=== PATIENT | female | born 1960 | race Two or more races ===

== ENCOUNTER 2020-01-19 12:13 | Inpatient (IN) | payer OTHER ==
[~2020-01-19] VITALS: Ht 154.9 cm; Wt 100.2 kg
[2020-02-13] MEDS ORDERED: AMBIEN10 MG PO (13:29)
[2020-02-13] MEDS ORDERED: LISINOPRIL PO (13:29)
[2020-02-13] MEDS ORDERED: TRANXE PO (13:30)
[2020-02-13] MEDS ORDERED: TRANXENE T-TAB7.5 MG PO (13:30)
[2020-02-13] MEDS ORDERED: VOLTAREN100 GM PO (13:31)
[2020-02-13] MEDS ORDERED: LEVAQUIN500 MG PO (13:31)
[2020-02-13] MEDS ORDERED: GRALISE600 MG PO (13:31)
[2020-02-13] MEDS ORDERED: CANABIS PO (13:32)
[2020-02-17] MEDS ORDERED: ZESTRIL20 MG PO (11:20)
== END 2020-02-20 15:56 | DRG 470 ==
LOC: SURG 02-17 06:10 → O/R 02-17 06:10 → RECOVERY 02-17 09:00 → SURG 02-17 15:45
PROVIDERS: ADMIT Orthopaedic Surgery; ATTEND Orthopaedic Surgery
PROC: 0SRB0JZ Replacement of Left Hip Joint with Synthetic Substitute, Open Approach (ICD-10-PCS; principal; 2020-02-17 10:00)
DX: M16.12 Unilateral primary osteoarthritis, left hip (principal); D62 Acute posthemorrhagic anemia; I10 Essential (primary) hypertension; Z20.828 Contact with and (suspected) exposure to other viral communicable diseases; Z96.652 Presence of left artificial knee joint

== ENCOUNTER 2021-03-17 10:00 | Inpatient (IN) | payer OTHER ==
[~2021-03-17] VITALS: Ht 157.5 cm; Wt 99.3 kg
[~2021-03-17 10:00] MED LIST: AMBIEN10 MG PO; CANABIS PO; GRALISE600 MG PO; LEVAQUIN500 MG PO; LISINOPRIL PO; TRANXE PO; TRANXENE T-TAB7.5 MG PO; VOLTAREN100 GM PO; ZESTRIL20 MG PO
== END 2021-03-25 14:05 | DRG 470 ==
LOC: O/R 03-22 06:52 → SURG 03-22 10:00 → SURH 03-22 21:21
PROVIDERS: ADMIT Orthopaedic Surgery; ATTEND Orthopaedic Surgery
PROC: 0SR90JZ Replacement of Right Hip Joint with Synthetic Substitute, Open Approach (ICD-10-PCS; principal; 2021-03-22 10:15)
PROC: 30233N1 Transfusion of Nonautologous Red Blood Cells into Peripheral Vein, Percutaneous Approach (ICD-10-PCS; 2021-03-23)
DX: M16.11 Unilateral primary osteoarthritis, right hip (principal); D62 Acute posthemorrhagic anemia; I10 Essential (primary) hypertension; M85.661 Other cyst of bone, right lower leg

== ENCOUNTER 2021-04-02 15:16 | Emergency (ER) | payer OTHER ==
[~2021-04-02] VITALS: Ht 162.6 cm; Wt 104.3 kg
== END 2021-04-02 22:30 | disposition designated cancer center or children's hospital (05) ==
LOC: ER 15:16
DX: R07.89 Other chest pain (principal); Z98.890 Other specified postprocedural states

== ENCOUNTER 2024-02-27 14:32 | Outpatient (CLI) | payer OTHER ==
[2024-02-28] MEDS ORDERED: NEURONTIN300 MG (19:42)
== END 2024-02-27 14:37 | disposition home or self-care (01) ==
LOC: RAD 14:32
DX: M16.0 Bilateral primary osteoarthritis of hip (principal)

== ENCOUNTER → 2024-02-28 | Emergency (ER) | payer OTHER ==
[~2024-02-28] VITALS: Ht 157.5 cm; Wt 96.2 kg
[~2024-02-28] MED LIST changes: +NEURONTIN300 MG
[2024-02-28 21:32] LABS: HEMATOCRIT 28.5 % (36.0-45.00); MEAN CELL VOLUME 86.6 fL (80.00-100.00); MEAN CORPUSCULAR HGB CONC 33.4 g/dl (32.0-36.0); PLATELET COUNT 213 K/uL (150-450); RED BLOOD COUNT 3.29 M/uL (4.00-6.00); RED CELL DISTRIBUTION WIDTH 15.9 % (11.5-14.5)
[2024-02-28 21:35] LABS: HEMOGLOBIN 9.5 g/dL (12.0-15.00); MEAN CORPUSCULAR HEMOGLOBIN 28.8 pg (27.00-32.0)
[2024-02-28 21:36] LABS: ERYTHROCYTE SEDIMENTATION RATE 75 mm/hr
[2024-02-28 21:50] LABS: CALCIUM 9.7 mg/dL (8.5-10.1); CREATININE SERUM 0.99 mg/dL (0.55-1.02); GFR 56.47; POTASSIUM 4.14 mEq/L (3.5-5.1)
[2024-02-28 21:52] LABS: C-REACTIVE PROTEIN 0.74 MG/DL (0.00-0.29); INR 1.08; PARTIAL THROMBOPLASTIN TIME 31.7 SECONDS (22.0-34.0); PROTHROMBIN TIME 11.3 SECONDS (9.0-11.5)
== END | disposition home or self-care (01) ==
LOC: ER 19:12
PROVIDERS: Emergency Medicine
DX: M25.559 Pain in unspecified hip (principal)

== ENCOUNTER 2024-03-10 10:46 | Inpatient (IN) | payer OTHER ==
[~2024-03-10] VITALS: Ht 157.5 cm; Wt 97.5 kg
--- NOTE | 2024-03-10 12:34 | NUR ---
SE RECIBE PACIENTE ALERTA Y ORIENTADA X3 ACUDE A ER POR REFERDIDO POR LA (CIRUIZAA ORTEPJOSE) PARA ADMITIR PARA REPARAR PROTESIS DE CADERA.
[2024-03-10] MEDS ORDERED: BRIMONIDINE TART5 ML (12:37)
[2024-03-10 13:22] LABS: HEMATOCRIT 32.7 % (36.0-45.00); HEMOGLOBIN 10.8 g/dL (12.0-15.00); MEAN CELL VOLUME 88.1 fL (80.00-100.00); MEAN CORPUSCULAR HEMOGLOBIN 29.1 pg (27.00-32.0); PLATELET COUNT 208 K/uL (150-450); RED BLOOD COUNT 3.71 M/uL (4.00-6.00); RED CELL DISTRIBUTION WIDTH 15.5 % (11.5-14.5)
[2024-03-10 13:44] LABS: INR 1.05; PARTIAL THROMBOPLASTIN TIME 31.3 SECONDS (22.0-34.0); PROTHROMBIN TIME 11.4 SECONDS (9.0-11.5)
[2024-03-10 14:19] LABS: PH,URINE 5.5 (5.0-8.0); URINE APPEARANCE Cloudy; URINE BILIRRUBIN Negative (NEGATIVE); URINE BLOOD Negative; URINE COLOR Yellow; URINE GLUCOSE Negative (NEGATIVE); URINE KETONE Negative (NEGATIVE); URINE LEUKOCYTE Moderate; URINE NITRATE Positive; URINE PROTEIN Trace (NEGATIVE); URINE UROBILINOGEN 0.2 E.U./dl
[2024-03-10 14:23] LABS: URINE EPITHELIAL CELLS 31.2 uL (0.0-38.8); URINE RBC 5.8 uL (0.0-20.8); URINE WBC 606.9 uL (0.0-23.2)
[2024-03-10 14:28] LABS: URINE BACTERIA > 9821.5 uL (0.0-1933); URINE CAST 1.06 uL (0.0-1.40)
[2024-03-10] MEDS ORDERED: CEFTRIAXONE SODIUM 1,000 MG VIAL IV SCH (19:57)
[2024-03-10] MEDS ORDERED: ENALAPRILAT DIHYDRATE 1.25 MG/ML VIAL IV PRN (20:00)
[2024-03-11] MEDS ORDERED: CEFAZOLIN SODIUM 1,000 MG VIAL IV SCH ×2 (08:30→18:00)
[2024-03-11] MEDS ORDERED: TRANEXAMIC ACID 100MG/1ML (1000MG) AMPUL IV SCH ×2 (08:30)
[2024-03-11] MEDS ORDERED: ISOPROPYL ALCOHOL 30 ML OUNCE TOP ONE (08:35)
[2024-03-11] MEDS ORDERED: FAMOTIDINE/PF 20 MG in 0.9 % SODIUM CHLORIDE 100 ML IV SCH (09:00)
[2024-03-11] MEDS ORDERED: LISINOPRIL 20 MG TABLET PO SCH (09:00)
[2024-03-11] MEDS ORDERED: SUGAMMADEX SODIUM 200 MG/2 ML VIAL IV ONE ×2 (13:25→14:30)
[2024-03-11] MEDS ORDERED: OxyCODONE HCL/APAP UD (PERCOCET) PO PRN (13:30)
[2024-03-11] MEDS ORDERED: ONDANSETRON HCL 2 MG/ML VIAL IV PRN (13:30)
[2024-03-11] MEDS ORDERED: MORPHINE SULFATE 4 MG/ML VIAL IV ONE ×3 (14:20→14:50)
[2024-03-11] MEDS ORDERED: MORPHINE SULFATE 4 MG/ML CARTRIDGE IV SCH (18:00)
[2024-03-11] MEDS ORDERED: GABAPENTIN 100 MG CAPSULE PO SCH (21:00)
[2024-03-11] MEDS ORDERED: ORPHENADRINE CITRATE 100 MG TABLET PO SCH (21:00)
[2024-03-12 08:12] LABS: HEMATOCRIT 26.1 % (36.0-45.00); MEAN CORPUSCULAR HGB CONC 33.2 g/dl (32.0-36.0); PLATELET COUNT 197 K/uL (150-450); RED CELL DISTRIBUTION WIDTH 14.8 % (11.5-14.5)
[2024-03-12 08:28] LABS: HEMOGLOBIN 8.7 g/dL (12.0-15.00)
[2024-03-12] MEDS ORDERED: ENOXAPARIN SODIUM 30 MG/0.3 ML SYRINGE SUBCUTANEO SCH (09:00)
[2024-03-12] MEDS ORDERED: SOD FERRIC GLUC COMPLX/SUCROSE 62.5 MG/5 ML AMPUL IV SCH (11:43)
[2024-03-12] MEDS ORDERED: Cyanocobalamin/Mecobalamin 1 TAB.SL SL SCH (11:43)
[2024-03-12] MEDS ORDERED: VITAMIN B COMPLEX 1 EACH PO SCH (11:43)
[2024-03-12] MEDS ORDERED: FUROsemide 20 MG/2 ML VIAL IV SCH (11:45)
[2024-03-13] MEDS ORDERED: NORFLEX100MG PO (13:06)
[2024-03-13] MEDS ORDERED: GABAPENTIN100 MG PO (13:06)
[2024-03-13] MEDS ORDERED: OXYC1TAB9 PO (13:07)
[2024-03-13] MEDS ORDERED: XARELTO10 MG PO (13:07)
[2024-03-13 13:45] LABS: HEMATOCRIT 33.2 % (36.0-45.00); HEMOGLOBIN 11.1 g/dL (12.0-15.00); MEAN CELL VOLUME 89.1 fL (80.00-100.00); MEAN CORPUSCULAR HEMOGLOBIN 29.7 pg (27.00-32.0); MEAN CORPUSCULAR HGB CONC 33.3 g/dl (32.0-36.0); PLATELET COUNT 161 K/uL (150-450); RED BLOOD COUNT 3.73 M/uL (4.00-6.00); RED CELL DISTRIBUTION WIDTH 14.7 % (11.5-14.5)
== END 2024-03-13 17:52 | DRG 467 ==
LOC: ER 10:47 → SURG 13:09 → SEC-K 13:09 → SURG 15:42
PROVIDERS: ADMIT Orthopaedic Surgery; ATTEND Orthopaedic Surgery
PROC: 0SPA0JZ Removal of Synthetic Substitute from Right Hip Joint, Acetabular Surface, Open Approach (ICD-10-PCS; 2024-03-11)
PROC: 0SRA0JZ Replacement of Right Hip Joint, Acetabular Surface with Synthetic Substitute, Open Approach (ICD-10-PCS; principal; 2024-03-11 08:30)
PROC: 30233N1 Transfusion of Nonautologous Red Blood Cells into Peripheral Vein, Percutaneous Approach (ICD-10-PCS; 2024-03-12)
DX: T84.020A Dislocation of internal right hip prosthesis, initial encounter (principal); D62 Acute posthemorrhagic anemia; M79.7 Fibromyalgia; I10 Essential (primary) hypertension

== ENCOUNTER 2024-03-31 11:38 | Inpatient (IN) | payer OTHER ==
[~2024-03-31] VITALS: Ht 157.5 cm; Wt 96.2 kg
[~2024-03-31 11:38] MED LIST changes: +BRIMONIDINE TART5 ML; +GABAPENTIN100 MG PO; +NORFLEX100MG PO; +OXYC1TAB9 PO; +XARELTO10 MG PO
[2024-03-31] MEDS ORDERED: 0.9 % SODIUM CHLORIDE 1,000 ML IV SCH ×2 (12:15→16:45)
[2024-03-31] MEDS ORDERED: VANCOMYCIN HCL 500 MG VIAL IV ONE (12:15)
[2024-03-31] MEDS ORDERED: VANCOMYCIN HCL 1,000 MG VIAL ONE (12:38)
[2024-03-31 13:03] LABS: HEMATOCRIT 33.6 % (36.0-45.00); MEAN CELL VOLUME 87.5 fL (80.00-100.00); MEAN CORPUSCULAR HEMOGLOBIN 28.6 pg (27.00-32.0); MEAN CORPUSCULAR HGB CONC 32.7 g/dl (32.0-36.0); PLATELET COUNT 337 K/uL (150-450); RED BLOOD COUNT 3.84 M/uL (4.00-6.00); RED CELL DISTRIBUTION WIDTH 14.6 % (11.5-14.5)
[2024-03-31 13:10] LABS: ERYTHROCYTE SEDIMENTATION RATE 75 mm/hr
[2024-03-31 13:16] LABS: INR 1.05; PARTIAL THROMBOPLASTIN TIME 31.7 SECONDS (22.0-34.0); PROTHROMBIN TIME 11.4 SECONDS (9.0-11.5)
[2024-03-31 14:08] LABS: ALBUMIN 3.4 gm/dL (3.4-5.0); BILIRUBIN TOTAL 0.17 mg/dL (0.3-1.2); CALCIUM 9.6 mg/dL (8.5-10.1); CREATININE SERUM 1.21 mg/dL (0.55-1.02); GFR 44.66; POTASSIUM 4.64 mEq/L (3.5-5.1); TOTAL PROTEIN 8.4 gm/dL (6.4-8.2)
[2024-03-31 14:10] LABS: C-REACTIVE PROTEIN 2.24 MG/DL (0.00-0.29)
[2024-03-31 14:39] LABS: PH,URINE 6.5 (5.0-8.0); URINE APPEARANCE Cloudy; URINE BILIRRUBIN Negative (NEGATIVE); URINE BLOOD Negative; URINE COLOR Yellow; URINE GLUCOSE Negative (NEGATIVE); URINE KETONE Negative (NEGATIVE); URINE LEUKOCYTE Trace; URINE NITRATE Negative; URINE PROTEIN Negative (NEGATIVE); URINE UROBILINOGEN 0.2 E.U./dl
[2024-03-31 14:41] LABS: URINE BACTERIA 3933.5 uL (0.0-1933); URINE CAST 1.52 uL (0.0-1.40); URINE RBC 29.1 uL (0.0-20.8); URINE WBC 26.1 uL (0.0-23.2)
[2024-03-31 15:01] LABS: URINE EPITHELIAL CELLS > 201.7 uL (0.0-38.8)
[2024-03-31] MEDS ORDERED: VANCOMYCIN HCL 1,000 MG in 0.9 % SODIUM CHLORIDE 250 ML IV SCH (16:42)
[2024-03-31] MEDS ORDERED: CEFTRIAXONE SODIUM 2,000 MG in DEXTROSE 5 % IN WATER 100 ML IV SCH (16:44)
[2024-03-31] MEDS ORDERED: OxyCODONE HCL/APAP UD (PERCOCET) PO PRN (16:45)
[2024-03-31] MEDS ORDERED: CEFTRIAXONE SODIUM 2,000 MG VIAL ONE (16:59)
[2024-03-31] MEDS ORDERED: FAMOTIDINE/PF 20 MG/2 ML VIAL ONE (16:59)
[2024-03-31] MEDS ORDERED: LACTOBACILLUS ACIDOPHILUS 1 CAP CAP PO ONE (16:59)
[2024-03-31] MEDS ORDERED: LACTOBACILLUS ACIDOPHILUS 1 CAP CAP PO SCH (17:00)
[2024-03-31] MEDS ORDERED: FAMOtidine 20 MG TABLET PO SCH (17:00)
[2024-03-31 17:03] VITALS: BP 99/65; O2SAT 97
[2024-03-31 20:05] VITALS: BP 160/67; O2SAT 96
[2024-03-31] MEDS ORDERED: VANCOMYCIN HCL 1,000 MG VIAL IV SCH (21:00)
[2024-03-31] MEDS ORDERED: LORazepam 1 MG TABLET PO SCH (21:00)
[2024-04-01 00:38] VITALS: BP 100/55; O2SAT 100
[2024-04-01 07:06] LABS: HEMOGLOBIN 10.1 g/dL (12.0-15.00); MEAN CELL VOLUME 86.5 fL (80.00-100.00); MEAN CORPUSCULAR HEMOGLOBIN 29.2 pg (27.00-32.0); MEAN CORPUSCULAR HGB CONC 33.8 g/dl (32.0-36.0); PLATELET COUNT 257 K/uL (150-450); RED BLOOD COUNT 3.47 M/uL (4.00-6.00); RED CELL DISTRIBUTION WIDTH 14.8 % (11.5-14.5)
[2024-04-01 07:16] LABS: ALBUMIN 2.9 gm/dL (3.4-5.0); BILIRUBIN TOTAL 0.17 mg/dL (0.3-1.2); CALCIUM 9.1 mg/dL (8.5-10.1); GFR 55.64; GLOBULINA 3.7 G/DL (2.4-3.5); POTASSIUM 5.13 mEq/L (3.5-5.1); TOTAL PROTEIN 6.6 gm/dL (6.4-8.2)
[2024-04-01 07:17] LABS: C-REACTIVE PROTEIN 1.87 MG/DL (0.00-0.29)
[2024-04-01 08:16] VITALS: BP 139/70; O2SAT 100
[2024-04-01] MEDS ORDERED: LISINOPRIL 20 MG TABLET PO SCH (09:00)
[2024-04-01] MEDS ORDERED: Cyanocobalamin/Mecobalamin 1 TAB.SL SL SCH (09:00)
[2024-04-01] MEDS ORDERED: SOD FERRIC GLUC COMPLX/SUCROSE 62.5 MG in 0.9 % SODIUM CHLORIDE 50 ML IV SCH (09:00)
[2024-04-01] MEDS ORDERED: ENOXAPARIN SODIUM 30 MG/0.3 ML SYRINGE SUBCUTANEO SCH (09:00)
[2024-04-01 14:45] LABS: URINE APPEARANCE Clear; URINE BILIRRUBIN Negative (NEGATIVE); URINE BLOOD Negative; URINE COLOR Yellow; URINE GLUCOSE Negative (NEGATIVE); URINE KETONE Negative (NEGATIVE); URINE LEUKOCYTE Negative; URINE NITRATE Negative; URINE PROTEIN Negative (NEGATIVE); URINE UROBILINOGEN 0.2 E.U./dl
[2024-04-01 14:49] LABS: URINE BACTERIA 142.3 uL (0.0-1933); URINE EPITHELIAL CELLS 52.7 uL (0.0-38.8); URINE RBC 3.9 uL (0.0-20.8)
[2024-04-01 14:53] LABS: URINE WBC 1.5 uL (0.0-23.2)
[2024-04-01 16:00] VITALS: BP 114/69; O2SAT 92
[2024-04-01] MEDS ORDERED: GUAIFENESIN/DEXTROMETHORPHAN 10ML BLIST.PACK PO SCH (17:00)
[2024-04-01 20:00] VITALS: BP 114/71; O2SAT 97
[2024-04-01] MEDS ORDERED: LORATADINE 10 MG TABLET PO SCH (21:00)
[2024-04-02 00:45] VITALS: BP 118/56; O2SAT 97
[2024-04-02 08:06] VITALS: BP 140/64; O2SAT 96
[2024-04-02] MEDS ORDERED: VITAMIN B COMPLEX 1 EACH PO SCH (12:22)
[2024-04-02] MEDS ORDERED: CEFAZOLIN SODIUM 2,000 MG in 0.9 % SODIUM CHLORIDE 100 ML IV SCH (13:00)
[2024-04-02 15:25] VITALS: BP 124/59; O2SAT 97
[2024-04-02] MEDS ORDERED: AMINO ACIDS/PROTEIN HYDROLYS 30 ML BLIST.PACK PO SCH (16:00)
[2024-04-03] VITALS: BP 120/70; O2SAT 93
[2024-04-03 08:00] VITALS: BP 133/69; O2SAT 97
[2024-04-03] MEDS ORDERED: ACETAMINOPHEN 500 MG GEL..CAP PO PRN (11:45)
[2024-04-03 15:45] VITALS: BP 127/75; O2SAT 97
[2024-04-03] MEDS ORDERED: ACETAMINOPHEN 500 MG GEL..CAP PO SCH (17:00)
[2024-04-03] MEDS ORDERED: RIFAMPIN 300 MG CAPSULE PO SCH (17:00)
[2024-04-04] VITALS: BP 148/87; O2SAT 100
[2024-04-04 08:00] VITALS: BP 157/71; O2SAT 97
[2024-04-04 08:21] LABS: HEMATOCRIT 32.4 % (36.0-45.00); HEMOGLOBIN 10.8 g/dL (12.0-15.00); MEAN CELL VOLUME 87.3 fL (80.00-100.00); MEAN CORPUSCULAR HEMOGLOBIN 29.1 pg (27.00-32.0); MEAN CORPUSCULAR HGB CONC 33.3 g/dl (32.0-36.0); PLATELET COUNT 249 K/uL (150-450); RED BLOOD COUNT 3.71 M/uL (4.00-6.00); RED CELL DISTRIBUTION WIDTH 14.4 % (11.5-14.5)
[2024-04-04 08:59] LABS: ERYTHROCYTE SEDIMENTATION RATE 81 mm/hr
[2024-04-04 09:26] LABS: BILIRUBIN TOTAL 0.28 mg/dL (0.3-1.2); CALCIUM 9.1 mg/dL (8.5-10.1); CREATININE SERUM 0.9 mg/dL (0.55-1.02); GFR 62.84; GLOBULINA 3.9 G/DL (2.4-3.5); MAGNESIUM 2.1 mg/dL (1.8-2.4); PHOSPHOROUS 3.4 mg/dL (2.5-4.9); POTASSIUM 4.56 mEq/L (3.5-5.1); TOTAL PROTEIN 6.9 gm/dL (6.4-8.2)
[2024-04-04 09:31] LABS: C-REACTIVE PROTEIN 0.86 MG/DL (0.00-0.29)
[2024-04-04 11:33] LABS: PH,URINE 6.5 (5.0-8.0); URINE APPEARANCE Clear; URINE BILIRRUBIN Negative (NEGATIVE); URINE BLOOD Negative; URINE COLOR Yellow; URINE GLUCOSE Negative (NEGATIVE); URINE KETONE Negative (NEGATIVE); URINE LEUKOCYTE Negative; URINE NITRATE Negative; URINE PROTEIN Negative (NEGATIVE); URINE UROBILINOGEN 0.2 E.U./dl
[2024-04-04 11:48] LABS: URINE EPITHELIAL CELLS 114.6 uL (0.0-38.8); URINE WBC 11.9 uL (0.0-23.2)
[2024-04-04 12:12] LABS: URINE CAST 0.61 uL (0.0-1.40)
[2024-04-04 15:48] VITALS: BP 137/84; O2SAT 97
[2024-04-05 00:41] VITALS: BP 143/83; O2SAT 97
[2024-04-05 08:00] VITALS: BP 170/76; O2SAT 97
[2024-04-05] MEDS ORDERED: ENOXAPARIN SODIUM 40 MG/0.4 ML SYRINGE SUBCUTANEO SCH (09:00)
[2024-04-05] MEDS ORDERED: BUSPIRONE HCL 15 MG TABLET PO SCH (12:07)
[2024-04-05 16:23] VITALS: BP 179/80; O2SAT 97
[2024-04-05 21:00] VITALS: BP 124/75
[2024-04-05 23:44] VITALS: BP 115/76; O2SAT 97
[2024-04-06 08:00] VITALS: BP 160/80; O2SAT 97
[2024-04-06 16:28] VITALS: BP 187/84; O2SAT 97
[2024-04-07 00:47] VITALS: BP 114/58; O2SAT 96
[2024-04-07 06:45] LABS: HEMATOCRIT 32.2 % (36.0-45.00); HEMOGLOBIN 10.7 g/dL (12.0-15.00); MEAN CORPUSCULAR HEMOGLOBIN 29.3 pg (27.00-32.0); MEAN CORPUSCULAR HGB CONC 33.3 g/dl (32.0-36.0); PLATELET COUNT 236 K/uL (150-450); RED BLOOD COUNT 3.66 M/uL (4.00-6.00); RED CELL DISTRIBUTION WIDTH 14.4 % (11.5-14.5)
[2024-04-07 07:27] LABS: ALBUMIN 2.8 gm/dL (3.4-5.0); BILIRUBIN TOTAL 0.22 mg/dL (0.3-1.2); C-REACTIVE PROTEIN 1.77 MG/DL (0.00-0.29); CALCIUM 9.1 mg/dL (8.5-10.1); CREATININE SERUM 0.95 mg/dL (0.55-1.02); GFR 59.04; GLOBULINA 3.9 G/DL (2.4-3.5); POTASSIUM 4.1 mEq/L (3.5-5.1); TOTAL PROTEIN 6.7 gm/dL (6.4-8.2)
[2024-04-07 08:52] VITALS: BP 146/73; O2SAT 97
[2024-04-07 17:26] VITALS: BP 176/74; O2SAT 96
[2024-04-07 19:06] LABS: HEMATOCRIT 31.4 % (36.0-45.00); HEMOGLOBIN 10.5 g/dL (12.0-15.00); MEAN CORPUSCULAR HEMOGLOBIN 29.2 pg (27.00-32.0); MEAN CORPUSCULAR HGB CONC 33.5 g/dl (32.0-36.0); PLATELET COUNT 249 K/uL (150-450); RED BLOOD COUNT 3.61 M/uL (4.00-6.00); RED CELL DISTRIBUTION WIDTH 14.8 % (11.5-14.5)
[2024-04-07 19:11] LABS: ERYTHROCYTE SEDIMENTATION RATE 104 mm/hr
[2024-04-07 19:27] LABS: ALBUMIN 2.9 gm/dL (3.4-5.0); BILIRUBIN TOTAL 0.15 mg/dL (0.3-1.2); CALCIUM 9.3 mg/dL (8.5-10.1); CREATININE SERUM 0.97 mg/dL (0.55-1.02); GFR 57.63; GLOBULINA 4.1 G/DL (2.4-3.5); POTASSIUM 4.45 mEq/L (3.5-5.1)
[2024-04-07 19:28] LABS: C-REACTIVE PROTEIN 1.91 MG/DL (0.00-0.29)
[2024-04-08] MEDS ORDERED: LORazepam 1 MG TABLET PO STA (00:08)
[2024-04-08 00:30] VITALS: BP 106/69; O2SAT 94
[2024-04-08 09:13] VITALS: BP 137/74; O2SAT 91
[2024-04-08 16:53] VITALS: BP 147/67; O2SAT 98
[2024-04-08] MEDS ORDERED: LORazepam 1 MG TABLET PO SCH (21:00)
[2024-04-08] MEDS ORDERED: TRAZODONE HCL 50 MG TABLET PO SCH (21:00)
[2024-04-09 00:12] VITALS: BP 118/76; O2SAT 95
[2024-04-09 08:00] VITALS: BP 120/80; O2SAT 96
== END 2024-04-09 16:55 | DRG 863 ==
LOC: ER 11:39 → SURG 17:44 → SEC-K 17:44 → SURG 18:17
PROVIDERS: Emergency Medicine; Internal Medicine; Internal Medicine Infectious Disease; ADMIT Orthopaedic Surgery; ATTEND Orthopaedic Surgery
PROC: BW2GYZZ Computerized Tomography (CT Scan) of Pelvic Region using Other Contrast (ICD-10-PCS; principal; 2024-04-01)
PROC: BW2GZZZ Computerized Tomography (CT Scan) of Pelvic Region (ICD-10-PCS; 2024-04-01)
PROC: 02HV33Z Insertion of Infusion Device into Superior Vena Cava, Percutaneous Approach (ICD-10-PCS; 2024-04-05)
DX: T81.49XA Infection following a procedure, other surgical site, initial encounter (principal); T81.30XA Disruption of wound, unspecified, initial encounter; D62 Acute posthemorrhagic anemia; D53.0 Protein deficiency anemia; B95.61 Methicillin susceptible Staphylococcus aureus infection as the cause of diseases classified elsewhere; F32.89 Other specified depressive episodes